=== PATIENT | female | born 1965 | race Caucasian/White ===

== ENCOUNTER 2017-08-27 11:58 | Emergency (ER) | payer OTHER ==
[2017-08-27 12:22] VITALS: O2SAT 97
[2017-08-27] MEDS ORDERED: Lactated Ringer's 1,000 ML IV STA (12:25)
--- NOTE | 2017-08-27 12:50 | RAD ---
HISTORY: chest pain COMPARISON: None available. TECHNIQUE: Chest, one view. FINDINGS: Examination limited by habitus. LUNGS: No focal consolidation. 5 mm right middle lobe calcified granuloma. Bilateral 14 mm nodular densities possibly related to nipple shadows. Please note that chest x-ray has limited sensitivity for the detection of pulmonary masses. PLEURA: No significant pleural effusion identified. No definite pneumothorax . CARDIOVASCULAR: The cardiomediastinal silhouette appears within normal limits of size. OSSEOUS STRUCTURES: Degenerative changes of the spine. VISUALIZED UPPER ABDOMEN: Unremarkable. OTHER FINDINGS: None. IMPRESSION: No focal consolidation, significant pleural effusion, or definite pneumothorax identified. 5 mm right middle lobe calcified granuloma. Bilateral 14 mm nodular densities possibly related to nipple shadows.
[2017-08-27 13:01] LABS: BASO % 0.3 % (0.0-2.0); EOS # 0.1 K/uL (0.0-0.7); EOS % 1.1 % (0.0-4.0); HEMOGLOBIN 14.5 g/dL (11.0-16.0); LYMPH # 2.1 K/uL (1.0-4.3); LYMPH % 31.4 % (20.0-40.0); MEAN CORPUSCULAR HEMOGLOBIN 31.4 pg (27.0-31.0); MEAN CORPUSCULAR HGB CONC 34.9 g/dL (33.0-37.0); MEAN PLATELET VOLUME 8.5 fL (7.2-11.7); MONO # 0.3 K/uL (0.0-0.8); MONO % 4.8 % (0.0-10.0); NEUT # 4.1 K/uL (1.8-7.0); NEUT % 62.4 % (50.0-75.0); RBC 4.62 Mil/uL (3.80-5.20); RED CELL DISTRIBUTION WIDTH 12.1 % (11.5-14.5); WHITE BLOOD COUNT 6.6 K/uL (4.8-10.8)
[2017-08-27 13:12] LABS: ALB/GLOB RATIO 1.2 (1.0-2.1); ALBUMIN 4.2 g/dL (3.5-5.0); ALT/SGPT 27 U/L (9-52); AST/SGOT 28 U/L (14-36); BLOOD UREA NITROGEN 12 mg/dL (7-17); CALCIUM 8.8 mg/dl (8.6-10.4); GFR AFRICAN-AMERICAN > 60; GFR NON-AFRICAN AMERICAN > 60
[2017-08-27] MEDS ORDERED: Lactated Ringer's 1,000 ML ONE (13:14)
[2017-08-27] MEDS ORDERED: Iodixanol 320 MG/ML 100 ML BOTTLE IV ONE (14:44)
--- NOTE | 2017-08-27 15:40 | CT ---
CTA chest PE protocol Indication: Rule out PE Technique: Contiguous axial images were obtained through the chest with intravenous contrast enhancement. Sagittal and coronal reconstructions were generated and reviewed. This CT exam was performed using 1 or more of the falling dose reduction techniques: Automated exposure control, adjustment of the MAA and/or kV according to patient size, and/or use of iterative reconstruction technique. IV Contrast: 100 mL Visipaque Radiation dose (DLP): 333.70 MGy-cm. Comparison: Chest x-ray performed 08/27/17 Findings: Visualized portions of the inferior thyroid gland appear unremarkable. The mediastinal and hilar vascular structures appear within normal limits. The heart appears within normal limits of size. No large central or segmental pulmonary embolus evident. No focal consolidation. No pleural effusion. No pneumothorax. Scattered right-sided calcified granulomas. No suspicious pulmonary nodules measuring greater than 5 mm. Limited visualized portions of the upper abdomen demonstrates 6 mm too small to characterize right hepatic lobe hypodensity; statistically likely cyst or hemangioma. Degenerative changes of the spine. Impression: No large central or segmental pulmonary embolus identified. Scattered calcified granulomas. Limited visualized portions of the upper abdomen demonstrates 6 mm too small to characterize right hepatic lobe hypodensity; statistically likely cyst or hemangioma.
[2017-08-27 15:56] VITALS: BP 103/61; PULSE 68; RESP 16; TEMP 97.6
--- NOTE | 2017-08-27 17:46 | C.PDOC ---
History Of Present Illness 52 year old female presents to the ED for evaluation of intermittent chest pain which began 3 days ago. Patient describes her pain as sharp and states it is non -radiating. She denies fever, chills, cough, shortness of breath, nausea, vomiting and recent travel. Time Seen by Provider: 08/27/17 12:10 Chief Complaint (Nursing): Chest Pain History Per: Patient History/Exam Limitations: no limitations Onset/Duration Of Symptoms: Days (3), Intermittent Episodes Current Symptoms Are (Timing): Still Present Quality: Sharp, "Pain" Associated Symptoms: denies: Nausea Additional History Per: Patient Past Medical History Reviewed: Historical Data, Nursing Documentation, Vital Signs Vital Signs: Last Vital Signs Temp 97.6 F 08/27/17 15:56 Pulse 68 08/27/17 15:56 Resp 16 08/27/17 15:56 BP 103/61 08/27/17 15:56 Pulse Ox 97 08/27/17 17:53 - Medical History PMH: Arthritis, TIA Surgical History: No Surg Hx - [facility] Procedures INJECT/INFUSE NEC (09/04/13) NEBULIZER THERAPY (09/04/13) Family History: States: Unknown Family Hx - Social History Hx Alcohol Use: No Hx Substance Use: No - Immunization History Hx Tetanus Toxoid Vaccination: No Hx Influenza Vaccination: No Hx Pneumococcal Vaccination: No Review Of Systems Constitutional: Negative for: Fever, Chills Cardiovascular: Positive for: Chest Pain Respiratory: Negative for: Cough Gastrointestinal: Negative for: Nausea, Vomiting Musculoskeletal: Negative for: Neck Pain, Shoulder Pain, Arm Pain Neurological: Negative for: Weakness, Numbness Physical Exam - Physical Exam Appears: Non-toxic, No Acute Distress Skin: Normal Color, Warm, Dry Head: Atraumatic, Normacephalic Eye(s): bilateral: Normal Inspection Oral Mucosa: Moist Neck: Supple Chest: Symmetrical, No Deformity, No Tenderness Cardiovascular: Rhythm Regular, No Murmur Respiratory: Normal Breath Sounds, No Rales, No Rhonchi, No Wheezing Extremity: Normal ROM, Capillary Refill (less than 2 seconds ) Neurological/Psych: Oriented x3, Normal Speech, Normal Cognition Gait: Steady ED Course And Treatment - Laboratory Results Result Diagrams: 08/27/17 12:57 08/27/17 12:57 ECG: Interpreted By Me, Viewed By Me ECG Rhythm: Sinus Rhythm Interpretation Of ECG: Normal sinus rhythm at rate 73bpm. Normal axis and intervals. Rate From EC O2 Sat by Pulse Oximetry: 97 (on RA) - Other Rad CXR X-Ray: Interpreted by Me, Viewed By Me, Read By Radiologist Interpretation: HISTORY: chest pain. COMPARISON: None available. TECHNIQUE: Chest, one view. FINDINGS: Examination limited by habitus. LUNGS: No focal consolidation. 5 mm right middle lobe calcified granuloma. Bilateral 14 mm nodular densities possibly related to nipple shadows. Please note that chest x-ray has limited sensitivity for the detection of pulmonary masses. PLEURA: No significant pleural effusion identified. No definite pneumothorax . CARDIOVASCULAR: The cardiomediastinal silhouette appears within normal limits of size. OSSEOUS STRUCTURES: Degenerative changes of the spine. VISUALIZED UPPER ABDOMEN: Unremarkable. OTHER FINDINGS: None. IMPRESSION: No focal consolidation, significant pleural effusion, or definite pneumothorax identified. 5 mm right middle lobe calcified granuloma. Bilateral 14 mm nodular densities possibly related to nipple shadows. - CT Scan/US CTA Chest Other Rad Studies (CT/US): Interpreted By Me, Read By Radiologist, Radiology Report Reviewed CT/US Interpretation: CTA chest PE protocol. Indication: Rule out PE. Technique: Contiguous axial images were obtained through the chest with intravenous contrast enhancement. Sagittal and coronal reconstructions were generated and reviewed. This CT exam was performed using 1 or more of the falling dose reduction techniques: Automated exposure control, adjustment of the MAA and/or kV according to patient size, and/or use of iterative reconstruction technique. IV Contrast: 100 mL Visipaque. . Radiation dose ( DLP): 333.70 MGy-cm. Comparison: Chest x-ray performed 08/27/17. Findings: Visualized portions of the inferior thyroid gland appear unremarkable. The mediastinal and hilar vascular structures appear within normal limits. The heart appears within normal limits of size. No large central or segmental pulmonary embolus evident. No focal consolidation. No pleural effusion. No pneumothorax. Scattered right-sided calcified granulomas. No suspicious pulmonary nodules measuring greater than 5 mm. Limited visualized portions of the upper abdomen demonstrates 6 mm too small to characterize right hepatic lobe hypodensity; statistically likely cyst or hemangioma. Degenerative changes of the spine. Impression: No large central or segmental pulmonary embolus identified. Scattered calcified granulomas. Limited visualized portions of the upper abdomen demonstrates 6 mm too small to characterize right hepatic lobe hypodensity; statistically likely cyst or hemangioma. Medical Decision Making Medical Decision Making: Progress: Bloodwork, EKG, CXR, CT Angio Chest ordered and reviewed. Toradol IVP and Lactated ringers Solution administered. On reassessment, patient is resting comfortably, showing no signs of distress and reports an improvement in her symptoms. Patient is stable for discharge and is advised to f/u with PMD/clinic within 3-5 days for further evaluation. Disposition - Disposition Referrals: Mary Maloney, [Non-Staff] - Disposition: HOME/ ROUTINE Disposition Time: 15:40 Condition: GOOD Additional Instructions: Thank you for letting us take care of you today. The emergency medical care you received today was directed at your acute symptoms. If you were prescribed any medication, please fill it and take as directed. It may take several days for your symptoms to resolve. Return to the Emergency Department if your symptoms worsen, do not improve, or if you have any other problems. Please contact your doctor or call one of the physicians/clinics you have been referred to that are listed on the Patient Visit Information form that is included in your discharge packet. Bring any paperwork you were given at discharge with you along with any medications you are taking to your follow up visit. Our treatment cannot replace ongoing medical care by a primary care provider (PCP) outside of the emergency department. Thank you for allowing the [facility] team to be part of your care today. Follow up with your doctor in 3-5 days for re-evaluation and further management. Instructions: Noncardiac Chest Pain (ED) Forms: [employer] (Albanian) - Clinical Impression Clinical Impression: Non-cardiac chest pain - Scribe Statement The provider has reviewed the documentation as recorded by the Scribe (Tamara Rahman) Provider Attestation: All medical record entries made by the Scribe were at my direction and personally dictated by me. I have reviewed the chart and agree that the record accurately reflects my personal performance of the history, physical exam, medical decision making, and the department course for this patient. I have also personally directed, reviewed, and agree with the discharge instructions and disposition.
--- NOTE | 2017-08-31 14:29 | CARD ---
APPROVED REPORT EKG Measurement Heart [id number] <Conclusion> Normal sinus rhythm Nonspecific T wave abnormality Abnormal ECG
== END 2017-08-27 16:05 | disposition home or self-care (01) ==
LOC: C.ER 11:58
DX: R07.89 Other chest pain (principal)
CPT/HCPCS: 71010; 71275; 80053; 84484; 85025; 85378; 96374; 99283; J1885; J7120; Q9967

== ENCOUNTER 2018-04-17 10:48 | Emergency (ER) | payer OTHER ==
[2018-04-17 10:53] VITALS: BMI 27.4
[2018-04-17 10:55] VITALS: TEMP 98.2; O2SAT 98
--- NOTE | 2018-04-17 11:29 | C.PDOC ---
History Of Present Illness 53 year old female presents to the emergency department complaining of left lower back leg pain for the past month. The patient states that she has arthritis but denies any back pain, fever, or chills. Time Seen by Provider: 04/17/18 10:56 Chief Complaint (Nursing): Lower Extremity Problem/Injury History Per: Patient History/Exam Limitations: no limitations Onset/Duration Of Symptoms: Days Current Symptoms Are (Timing): Still Present Past Medical History Reviewed: Historical Data, Nursing Documentation, Vital Signs Vital Signs: Last Vital Signs Temp 98.2 F 04/17/18 10:53 Pulse 79 04/17/18 13:40 Resp 16 04/17/18 13:40 BP 117/81 04/17/18 13:40 Pulse Ox 98 04/17/18 13:40 - Medical History PMH: Arthritis, Asthma, TIA Denies: Chronic Kidney Disease - [facility] Procedures INJECT/INFUSE NEC (09/04/13) NEBULIZER THERAPY (09/04/13) Family History: States: No Known Family Hx - Social History Hx Alcohol Use: No Hx Substance Use: No - Immunization History Hx Tetanus Toxoid Vaccination: No Hx Influenza Vaccination: No Hx Pneumococcal Vaccination: No Review Of Systems Except As Marked, All Systems Reviewed And Found Negative. Constitutional: Negative for: Fever, Chills Cardiovascular: Negative for: Chest Pain Respiratory: Negative for: Shortness of Breath Gastrointestinal: Negative for: Nausea, Vomiting Musculoskeletal: Positive for: Leg Pain (left lower back ). Negative for: Back Pain Neurological: Negative for: Weakness, Numbness Physical Exam - Physical Exam Appears: Non-toxic, No Acute Distress Skin: Warm, Dry, No Rash Head: Atraumatic, Normacephalic Eye(s): bilateral: Normal Inspection Oral Mucosa: Moist Neck: Supple Chest: Symmetrical Cardiovascular: Rhythm Regular Back: Normal Inspection, No CVA Tenderness Extremity: Calf Tenderness (behind the knee), No Swelling Extremity: Left: Atraumatic Neurological/Psych: Oriented x3, Normal Speech, Normal Cognition Gait: Steady ED Course And Treatment O2 Sat by Pulse Oximetry: 98 (RA) Pulse Ox Interpretation: Normal Progress Note: Knee x-ray, CT LS Spine, and vascular lab ordered. Motrin administered. Venous duplex LLE -neg for DVT. Disposition - Disposition Referrals: Diaz Kevin III, MD [Staff Provider] - Disposition: HOME/ ROUTINE Disposition Time: 13:28 Condition: STABLE Additional Instructions: Follow up with PMD within 1-2 days. Return to ED if feel worse. Prescriptions: Ibuprofen [Motrin Tab] 600 mg PO Q8 #30 tab Famotidine [Pepcid] 20 mg PO BID #20 tab Instructions: Knee Pain Forms: [employer] (Nigerien) - Clinical Impression Clinical Impression: Leg pain - PA / MACHINE PLATE STACKER / Resident Statement MD/DO has reviewed & agrees with the documentation as recorded. - Scribe Statement The provider has reviewed the documentation as recorded by the Scribe All medical record entries made by the Scribe were at my direction and personally dictated by me. I have reviewed the chart and agree that the record accurately reflects my personal performance of the history, physical exam, medical decision making, and the department course for this patient. I have also personally directed, reviewed, and agree with the discharge instructions and disposition.
--- NOTE | 2018-04-17 13:05 | RAD ---
Left knee three views History: Atraumatic pain. Comparison: None available. Findings: Mild medial and patellofemoral compartment joint space narrowing. Small suprapatellar joint effusion. No evidence for acute displaced fracture or dislocation. Impression: Degenerative changes. Small suprapatellar joint effusion. If pain persists, consider MRI.
--- NOTE | 2018-04-17 13:27 | RAD ---
Lumbar spine three views History: Pain. Comparison: None available. Findings: Grade 1/2 anterolisthesis of L4 on L5. Grade 1 retrolisthesis of L3 on L4. Lower level facet hypertrophy and sclerosis. Moderate loss of height of the inferior endplate of the T11 vertebral body with mild loss height of the superior endplate of the T12 vertebral body. At that level, there is prominent disc space narrowing with anterior osteophyte formation as well as endplate sclerosis. Correlation with thoracic spine MRI may be helpful for further evaluation of this level. Multiple calcified phleboliths in the pelvis. Impression: Grade 1/2 anterolisthesis of L4 on L5. Grade 1 retrolisthesis of L3 on L4. Lower level facet hypertrophy and sclerosis. If pain persists, consider correlation with MRI. Moderate loss of height of the inferior endplate of the T11 vertebral body with mild loss height of the superior endplate of the T12 vertebral body. At that level, there is prominent disc space narrowing with anterior osteophyte formation as well as endplate sclerosis. Correlation with thoracic spine MRI may be helpful for further evaluation of this level.
[2018-04-17 13:40] VITALS: BP 117/81; PULSE 79; RESP 16
--- NOTE | 2018-04-18 09:30 | VASCLAB ---
Date of service: 04/17/2018 PROCEDURE: Left Lower Extremity Venous Duplex Exam. HISTORY: atraumatic pain PRIORS: None. TECHNIQUE: Left common femoral, femoral, popliteal and posterior tibial, peroneal and great saphenous veins were evaluated. Flow was assessed with color Doppler, compressibility, assessment of phasic flow and augmentation response. Report prepared by NAOMIE Maza, RVT FINDINGS: LEFT: 1. Common Femoral Vein: 1.1. Compressibility - Fully compressible: Thrombus - None : Flow - Phasic: Augmentation -Normal: Reflux - None. 2. Femoral Vein: 2.1. Compressibility - Fully compressible: Thrombus - None: Flow - Phasic: Augmentation -Normal: Reflux - None. 3. Popliteal Vein: 3.1. Compressibility - Fully compressible: Thrombus - None: Flow - Phasic: Augmentation -Normal: Reflux - None. 4. Posterior Tibial Vein: 4.1. Compressibility - Fully compressible: Thrombus - None: Flow - Phasic: Augmentation -Normal: Reflux - None. 5. Peroneal Vein: 5.1. Compressibility - Fully compressible: Thrombus - None: Flow - Phasic: Augmentation -Normal: Reflux - None. 6. Great Saphenous Vein: 6.1. Compressibility - Fully compressible: Thrombus - None: Flow - Phasic: Augmentation - Normal: Reflux - None. OTHER FINDINGS: IMPRESSION: No evidence of deep or superficial vein thrombosis of the left lower extremity with excellent venous flow. Normal valve function noted of the left side. Normal venous flow noted in the right common femoral vein.
== END 2018-04-17 13:39 | disposition home or self-care (01) ==
LOC: C.ER 10:48
DX: M79.605 Pain in left leg (principal); M19.90 Unspecified osteoarthritis, unspecified site; Z86.73 Personal history of transient ischemic attack (TIA), and cerebral infarction without residual deficits

== ENCOUNTER 2019-01-12 15:22 | Emergency (ER) | payer OTHER ==
[2019-01-12 15:22] VITALS: BMI 27.4
[2019-01-12 16:08] LABS: BASO # 0.1 K/uL (0.0-0.2); BASO % 0.9 % (0.0-2.0); EOS # 0.2 K/uL (0.0-0.7); EOS % 1.9 % (0.0-4.0); HEMOGLOBIN 14.6 g/dL (11.0-16.0); LYMPH # 2.3 K/uL (1.0-4.3); LYMPH % 28.1 % (20.0-40.0); MEAN CELL VOLUME 91.3 fL (81.0-99.0); MEAN CORPUSCULAR HGB CONC 33.9 g/dL (33.0-37.0); MEAN PLATELET VOLUME 8.7 fL (7.2-11.7); MONO # 0.6 K/uL (0.0-0.8); MONO % 7.6 % (0.0-10.0); NEUT # 5.1 K/uL (1.8-7.0); NEUT % 61.5 % (50.0-75.0); RBC 4.71 Mil/uL (3.80-5.20); RED CELL DISTRIBUTION WIDTH 12.8 % (11.5-14.5); WHITE BLOOD COUNT 8.3 K/uL (4.8-10.8)
--- NOTE | 2019-01-12 16:17 | C.PDOC ---
History Of Present Illness Patient is a 53 year old female, with a PMHx of diabetes, asthma, and arthritis, who presents to the ED c/o left lower leg and left foot pain x5 days. Patient states that she noticed on 5 days ago when she removed her rain boots she had swelling in left foot and as day progressed she noticed in her left lower leg. Patient admits to pain in the lower leg rated as a 7/10 and denies medication use, but has been keeping leg elevated with little improvement. Patient also reports cough and has been using a Ventolin pump as needed with little improvement. She denies trauma or injury to area, fever, chills, CP, SOB, numbness, tingling, weakness, dizziness, or recent travel. Time Seen by Provider: 01/12/19 15:36 Chief Complaint (Nursing): Lower Extremity Problem/Injury History Per: Patient History/Exam Limitations: no limitations Onset/Duration Of Symptoms: Days (5) Current Symptoms Are (Timing): Still Present Pain Scale Rating Of: 7 Recent travel outside of the [place]: No Additional History Per: Patient Past Medical History Reviewed: Historical Data, Nursing Documentation, Vital Signs Vital Signs: Last Vital Signs Temp 98.9 F 01/12/19 15:31 Pulse 88 01/12/19 15:31 Resp 18 01/12/19 15:31 BP 120/20 L 01/12/19 15:31 Pulse Ox 96 01/12/19 15:31 Primary Care Provider: Luch[facility] - Medical History PMH: Arthritis, Asthma, TIA Denies: Chronic Kidney Disease Surgical History: No Surg Hx - [facility] Procedures INJECT/INFUSE NEC (09/04/13) NEBULIZER THERAPY (09/04/13) Family History: States: Unknown Family Hx - Social History Hx Alcohol Use: No Hx Substance Use: No - Immunization History Hx Tetanus Toxoid Vaccination: No Hx Influenza Vaccination: No Hx Pneumococcal Vaccination: No Review Of Systems Constitutional: Negative for: Fever, Chills Cardiovascular: Negative for: Chest Pain Respiratory: Positive for: Cough. Negative for: Shortness of Breath Gastrointestinal: Negative for: Nausea, Vomiting Musculoskeletal: Positive for: Leg Pain (left lower leg pain and swelling), Foot Pain (left foot). Negative for: Neck Pain Skin: Negative for: Rash, Bruising Neurological: Negative for: Weakness, Numbness, Headache, Dizziness, Other (tingling) Physical Exam - Physical Exam Appears: Non-toxic, No Acute Distress Skin: Warm, Dry Head: Atraumatic, Normacephalic Eye(s): bilateral: Normal Inspection, PERRL Ear(s): Bilateral: Normal Nose: No Discharge Oral Mucosa: Moist Tongue: Normal Appearing Lips: Normal Appearing Throat: No Erythema, No Exudate Neck: Normal ROM Chest: Symmetrical, No Deformity Cardiovascular: Rhythm Regular Respiratory: Wheezing Gastrointestinal/Abdominal: Soft, No Tenderness Extremity: Normal ROM (left knee and left foot), Pedal Edema, Calf Tenderness, Capillary Refill (less than 2 seconds), No Other (ecchymosis or erythema of left lower knee and left foot) Extremity: Bilateral: Atraumatic Pulses: Left Dorsalis Pedis: Normal, Right Dorsalis Pedis: Normal Neurological/Psych: Oriented x3, Normal Speech, Normal Cognition, Normal Motor, Normal Sensation Gait: Steady ED Course And Treatment - Laboratory Results Result Diagrams: 01/12/19 16:05 01/12/19 16:05 ECG: Interpreted By Me, Viewed By Me ECG Rhythm: Sinus Rhythm Interpretation Of ECG: No acute changes. Rate From EC O2 Sat by Pulse Oximetry: 96 (on RA) Pulse Ox Interpretation: Normal - Other Rad chest xray X-Ray: Viewed By Me, Read By Radiologist Interpretation: Accession No. : [id number]. Patient Name / ID : ANUSHKA HENRY / [id number]. Exam Date : 01/12/2019 16:34:13 ( Approved ). Study Comment : Sex / Age : F / 53Y. Creator : Hailey Unger MD. Dictator : Hailey Unger MD. Pbx Supervisor : Autoclave Operator : Hailey Unger MD. Approver2 : Report Date : 01/12/2019 16:54:26. My Comment : . HISTORY: cough. COMPARISON: Chest x-ray performed 08/27/17, CTA chest performed 08/27/17. TECHNIQUE: Chest PA and lateral, 2 views. FINDINGS: LUNGS: No focal consolidation. Tiny nodular opacities, possibly scattered calcified granulomas. Please note that chest x-ray has limited sensitivity for the detection of pulmonary masses. PLEURA: No significant pleural effusion identified. No definite pneumothorax . CARDIOVASCULAR: The cardiomediastinal silhouette appears within normal limits of size. No atherosclerotic emery cification present. OSSEOUS STRUCTURES: Degenerative changes. VISUALIZED UPPER ABDOMEN: Unremarkable. OTHER FINDINGS: None. IMPRESSION: No focal consolidation, significant pleural effusion, or definite pneumothorax. Scattered nodular opacities, possibly scattered calcified granulomas. Medical Decision Making Medical Decision Making: Plan: Duoneb started for wheezing EKG- unremarkable Labs - elevated D-dimer Venous Doppler -normal findings Patient continues to wheeze- 2nd Duoneb and Solumedrol given Chest xray ordered and discussed results with Dr. Funes Reassessed: wheezing significant improved D/W patient results of Chest xray and advised to follow up with PMD re: calcified granulomas Will start Pred, Tessalon, and Albuterol as outpatient Encouraged rest and hydration Advised patient to return if she develops worsening SOB patient verbalized understanding and is stable for discharge Disposition Counseled Patient/Family Regarding: Studies Performed, Diagnosis, Need For Followup, Rx Given - Disposition Referrals: [facility] [Outside] Disposition: HOME/ ROUTINE Disposition Time: 18:50 Condition: IMPROVED Additional Instructions: Continue Meds as prescribed Rest and Hydration Follow up with PMD for noted scattered nodular opacities, possible calcified granulomas on Xray Xray report given to you Return to ED if symptoms worsen Prescriptions: Albuterol HFA [Ventolin HFA 90 mcg/actuation (8 g)] 2 puff IH [id number] PRN #1 inhaler PRN Reason: Shortness Of Breath Benzonatate [Tessalon Perles] 100 mg PO TID #30 sgl predniSONE [predniSONE Tab] 60 mg PO DAILY #15 tab Instructions: Asthma, Adult (DC), Viral Upper Respiratory Infection, Adult (DC), Muscle and Bone Pain (DC) Forms: [facility] (Sami) - Clinical Impression Clinical Impression: Leg swelling, Foot swelling, Leg pain, Cough, Asthma exacerbation - PA / PEOPLESOFT TALEO MANAGER / Resident Statement MD/DO has examined the patient and agrees with the treatment plan. - Scribe Statement The provider has reviewed the documentation as recorded by the Eleuterioibe Cathie King All medical record entries made by the Eleuterioibe were at my direction and personally dictated by me. I have reviewed the chart and agree that the record accurately reflects my personal performance of the history, physical exam, me dical decision making, and the department course for this patient. I have also personally directed, reviewed, and agree with the discharge instructions and disposition.
[2019-01-12 16:20] LABS: ALB/GLOB RATIO 1.3 (1.0-2.1); ALBUMIN 4.4 g/dL (3.5-5.0); ALT/SGPT 28 U/L (9-52); AST/SGOT 27 U/L (14-36); BLOOD UREA NITROGEN 17 mg/dL (7-17); CALCIUM 9.7 mg/dl (8.6-10.4); GFR NON-AFRICAN AMERICAN > 60
[2019-01-12] MEDS ORDERED: Albuterol-Ipratrop 3 mg / 0.5 (3 ml) UD INH STA ×2 (16:22→18:11)
[2019-01-12 16:36] LABS: PARTIAL THROMBOPLASTIN TIME 32.7 SECONDS (21-34); PROTHROMBIN TIME 11.2 SECONDS (9.7-12.2)
[2019-01-12] MEDS ORDERED: Albuterol-Ipratrop 3 mg / 0.5 (3 ml) UD ONE ×2 (16:43→18:36)
--- NOTE | 2019-01-12 16:58 | RAD ---
HISTORY: cough COMPARISON: Chest x-ray performed 08/27/17, CTA chest performed 08/27/17 TECHNIQUE: Chest PA and lateral, 2 views FINDINGS: LUNGS: No focal consolidation. Tiny nodular opacities, possibly scattered calcified granulomas. Please note that chest x-ray has limited sensitivity for the detection of pulmonary masses. PLEURA: No significant pleural effusion identified. No definite pneumothorax . CARDIOVASCULAR: The cardiomediastinal silhouette appears within normal limits of size. No atherosclerotic calcification present. OSSEOUS STRUCTURES: Degenerative changes. VISUALIZED UPPER ABDOMEN: Unremarkable. OTHER FINDINGS: None. IMPRESSION: No focal consolidation, significant pleural effusion, or definite pneumothorax. Scattered nodular opacities, possibly scattered calcified granulomas.
[2019-01-12 17:43] LABS: B-TYPE NATRIURETIC PEPTIDE 41.7 pg/mL (0-900)
[2019-01-12 19:11] VITALS: BP 118/76; PULSE 96; RESP 21; TEMP 98.1
[2019-01-13 17:36] VITALS: O2SAT 96
--- NOTE | 2019-01-14 14:18 | CARD ---
APPROVED REPORT Date of service: 01/12/2019 EKG Measurement Heart [id number] <Conclusion> Normal sinus rhythm Rightward axis Borderline ECG
--- NOTE | 2019-01-16 09:13 | VASCLAB ---
Date of service: 01/12/2019 PROCEDURE: Left Lower Extremity Venous Duplex Exam. HISTORY: left leg pain and swelling PRIORS: None. TECHNIQUE: Left common femoral, femoral, popliteal and posterior tibial, peroneal and great saphenous veins were evaluated. Flow was assessed with color Doppler, compressibility, assessment of phasic flow and augmentation response. Report prepared by NAOMIE Maza, RVT FINDINGS: LEFT: 1. Common Femoral Vein: 1.1. Compressibility - Fully compressible: Thrombus - None : Flow - Phasic: Augmentation -Normal: Reflux - None. 2. Femoral Vein: 2.1. Compressibility - Fully compressible: Thrombus - None: Flow - Phasic: Augmentation -Normal: Reflux - None. 3. Popliteal Vein: 3.1. Compressibility - Fully compressible: Thrombus - None: Flow - Phasic: Augmentation -Normal: Reflux - None. 4. Posterior Tibial Vein: 4.1. Compressibility - Fully compressible: Thrombus - None: Flow - Phasic: Augmentation -Normal: Reflux - None. 5. Peroneal Vein: 5.1. Compressibility - Fully compressible: Thrombus - None: Flow - Phasic: Augmentation -Normal: Reflux - None. 6. Great Saphenous Vein: 6.1. Compressibility - Fully compressible: Thrombus - None: Flow - Phasic: Augmentation - Normal: Reflux - None. OTHER FINDINGS: Anechoic irregular shaped non vascularized mass noted in the left proximal calf. Impression No evidence of deep or superficial vein thrombosis of the left lower extremity with excellent venous flow. Normal valve function noted of the left side. Normal venous flow noted in the right common femoral vein.
== END 2019-01-12 19:11 | disposition home or self-care (01) ==
LOC: C.ER 15:22
DX: M79.662 Pain in left lower leg (principal); M79.89 Other specified soft tissue disorders; J45.901 Unspecified asthma with (acute) exacerbation; R05 Cough
CPT/HCPCS: 71046; 80053; 83880; 84484; 85025; 85378; 85610; 85730; 93005; 93971; 94640; 96374; 99285; J2930